=== PATIENT | male | born 1965 | race Caucasian/White ===

== ENCOUNTER → 2020-11-03 14:23 | Outpatient (CLI) | payer OTHER, SELFPAY ==
[2020-11-03 16:56] LABS: Alanine Aminotransferase 30 IU/L (<50); Albumin 4.2 g/dL (3.5-5.0); Albumin Globulin Ratio 1.4 (1.0-2.8); Alkaline Phosphatase 75 U/L (38-126); Aspartate Aminotransferase 29 IU/L (17-59); BUN Creatinine Ratio 26.2 (6-22); Bilirubin Total 0.4 mg/dL (0.2-1.3); Blood Urea Nitrogen 17 mg/dL (9-20); Calcium 9.5 mg/dL (8.4-10.2); Carbon Dioxide 29 mmol/L (22-32); Chloride 107 mmol/L (98-107); Cholesterol 257 mg/dL (140-199); Estimated Glomerular Filt Rate > 60.0 mL/min (>60); Glucose 98 mg/dL (70-100); HDL Cholesterol 35 mg/dL (40-60); HEMOLYSIS < 15 (0-50); LDL Cholesterol Calculated 194 mg/dL (<100); Sodium 142 mmol/L (137-145); Total Protein 7.2 g/dL (6.3-8.2); Triglycerides 140 mg/dL (35-150)
== END ==
PROVIDERS: PCP Internal Medicine; Referring Provider Internal Medicine; Visit Provider Internal Medicine
DX: B18.2 Chronic viral hepatitis C (principal); Z13.1 Encounter for screening for diabetes mellitus; Z13.220 Encounter for screening for lipoid disorders
CPT/HCPCS: 36415; 80053; 80061

== ENCOUNTER → 2021-01-15 12:20 | Outpatient (CLI) | payer OTHER, SELFPAY ==
[2021-01-15 13:44] LABS: COVID19 -Nasal RAPID Negative (Negative)
== END ==
PROVIDERS: PCP Internal Medicine; Visit Provider Surgery
DX: Z20.822 Contact with and (suspected) exposure to COVID-19 (principal)
CPT/HCPCS: 87635; C9803

== ENCOUNTER 2021-01-18 07:06 | Day surgery (SDC) | payer OTHER, SELFPAY ==
--- NOTE | 2021-01-18 | PATH_ITS ---
[facility] Accession Number: [id number] . 01 Material submitted: . colon - SIGMOID POLYP . 01 Clinical history: . SDC . 02 Diagnosis: Sigmoid Colon, Polyp, Biopsy: Hyperplastic polyp. MRV 01/20/2021 1357 Local . 02 Electronically signed: . Sierra Thompson MD, Pathologist NPI- [id number] . 01 Gross description: . SIGMOID POLYP: Received in formalin is 1 fragment(s) of burciaga, soft tissue measuring 0.3 x 0.2 x 0.1 cm submitted entirely in 1 cassette(s) /GENET 01/19/2021 0452 Local . 02 Pathologist provided ICD-10: K63.5 . 02 CPT . 848381 Performed at: 01 [facility] [address] [place] [address], [place], [place] [id number] MD Cm Oglesby MD Phone: [phone] Performed at: 02 [facility] [address] [place], [place] [id number] MD Sierra Thompson MD Phone: [phone]
[2021-01-18 07:30] VITALS: BP 143/81; PULSE 81; RESP 16; TEMP 36.5; O2SAT 100; BMI 21.9
[2021-01-18] MEDS: LACTATED RINGERS 1,000 ML 100 ML IV (07:38)
--- NOTE | 2021-01-18 08:36 | PM.HP.1 ---
History of Present Illness History of Present Illness Date Patient Seen: 01/18/21 Time Patient Seen: 08:36 Chief complaint: SDC Narrative: The patient presents for colorectal sreening. They have never had any previous examination for such. No personal or family history of colon cancer. On further history denies any recent gastrointestinal symptoms. No nausea, vomiting, abdominal pain, loss of appetite, unexplained weight loss, change in bowel habits, diarrhea, constipation, melena, hematochezia, or bright red blood per rectum. Patient History Medical History Chicken pox (~1979) Chronic hepatitis C (~2007) Foot pain (~2018) Hemorrhoid (~1999) Mixed hyperlipidemia Substance abuse (~1987) Testicular cancer (~1988) Surgical History Anesthesia S/P orchiectomy S/P vasectomy S/P ventral herniorrhaphy Family & Social History Family History Mother Family history of breast cancer Social History: household members significant other Tobacco & Substance use: Smoking Status Former smoker alcohol intake former Substance Use Type does not use Meds Home Medications and Allergies Allergies Allergy/AdvReac Type Severity Reaction Status Date / Time Lorazepam AdvReac Unknown MUSCLE Uncoded 01/18/21 07:28 CONTRACTIONS Exam Vital Signs (past 8 hours): - 01/18/21 07:30 Temperature 97.7 F Pulse Rate 81 Respiratory Rate 16 Blood Pressure 143/81 H Pulse Oximetry 100 Oxygen Delivery Method Room Air Narrative Exam Narrative: GENERAL-well developed adult male, no acute distress HEENT-no scleral icterus, hearing intact NECK-no JVD, trachea midline CVS- regular rate, no peripheral edema RESP-unlabored respiratory effort, no audible wheezing GI-soft, nontender nondistended MSK-no cyanosis or clubbing, extremities without deformity SKIN-warm, dry NEURO-alert and oriented, no focal deficits PYSCH-Appropriate mood and affect Assessment & Plan Assessment & Plan narrative: The patient requires colorectal screening and colonoscopy is recommended. Technical details were discussed. Risks, benefits, alternatives explained. Risks including but not limited to myocardial infarction, aspiration, bleeding, pain, missed lesion, incomplete examination, need for further radiographic studies, colonic perforation, and need for major abdominal surgery were discussed. All questions were answered to their satisfaction, and they are in agreement with this plan.
[2021-01-18] MEDS: MIDAZOLAM 5 MG/5 ML VIAL IV (08:48)
[2021-01-18] MEDS: fentaNYL 250 MCG/5 ML INJ IV (08:48)
[2021-01-18 09:05] VITALS: BP 101/54; PULSE 69; RESP 16; TEMP 36.9; O2SAT 99
--- NOTE | 2021-01-18 09:05 | PM.OP.ENDO ---
Operative Date/Time/Diagnoses Date of procedure: 01/18/21 Time of procedure: 09:05 Pre-op diagnosis: screening colonoscopy Post-op diagnosis: other (rectal polyp) Procedure & Clinicians Study performed: Colonoscopy Same procedure as scheduled: Yes Indications: No prior colonoscopy here for routine screening Surgeon: Erasto Guevara Procedure Notes Procedure in detail: Medications: Conscious sedation using 9mg IV midazolam and 200mcg IV of fentanyl The history and physical was performed/updated and the patient is ASA class is 2. The procedure was discussed in detail with the patient. Potential risks complications including infection, bleeding, missed diagnosis, perforation, need for surgery, and were explained. Their questions were answered and informed consent was obtained. Patient was brought to the procedure room and placed standard monitoring equipment. The patient's vital signs were monitored continuously throughout the entire procedure. Prior to starting time-out was performed. The patient was placed in the left lateral recumbent position. Procedural sedation was administered. Examination began with a thorough inspection of the perianal area there was no evidence of fissures, fistulae, external hemorrhoids or cutaneous malignancy. The colonoscopy scope was then placed into the anal canal and was advanced to the cecum, which was identified by the ileocecal valve, the appendiceal orifice and the confluence of the taenia. The scope was then slowly withdrawn examining colon thoroughly in all directions, irrigating it of any residual stool. FINDINGS 1. Sigmoid diverticulosis 2. Sigmoid polyp 5 mm removed with biopsy forceps The patient tolerated the procedure well. They will be discharged once criteria are met. The prep was of fair quality. The withdrawl time was 6 minutes. The sedation time was 22 minutes. Impression: colonic polyp Post-procedure Recommendations: Colonscopy in 5 years and High fiber diet Disposition: same day surgery
[2021-01-18 09:10] VITALS: BP 94/53; PULSE 75; RESP 16; O2SAT 98
--- NOTE | 2021-01-18 09:11 | SUR.PHASEI ---
Received to PACU after colonoscopy with sedation. Report from TERRELL Talley.
[2021-01-18 09:15] VITALS: BP 98/54; PULSE 70; RESP 14; O2SAT 100
[2021-01-18 09:20] VITALS: BP 104/73; PULSE 74; RESP 12; O2SAT 100
[2021-01-18 09:21] VITALS: BP 103/70; PULSE 76; RESP 16; TEMP 36.2; O2SAT 100
== END 2021-01-18 09:59 | disposition home or self-care (01) ==
PROVIDERS: PCP Internal Medicine; Referring Provider Surgery; Visit Provider Surgery
PROC: 0DJD8ZZ Inspection of Lower Intestinal Tract, Via Natural or Artificial Opening Endoscopic (ICD-10-PCS; CPT 45378; principal; 2021-01-18 07:45)
DX: Z12.11 Encounter for screening for malignant neoplasm of colon (principal); K62.1 Rectal polyp; K57.30 Diverticulosis of large intestine without perforation or abscess without bleeding; K63.5 Polyp of colon
CPT/HCPCS: 45380; 99152; J2250; J3010

== ENCOUNTER → 2021-06-04 14:53 | Outpatient (CLI) | payer OTHER, SELFPAY ==
[2021-06-04 17:39] LABS: Alanine Aminotransferase 19 IU/L (<50); Albumin 4.3 g/dL (3.5-5.0); Albumin Globulin Ratio 1.5 (1.0-2.8); Alkaline Phosphatase 63 U/L (38-126); Aspartate Aminotransferase 25 IU/L (17-59); BUN Creatinine Ratio 20.5 (6-22); Bilirubin Total 0.5 mg/dL (0.2-1.3); Blood Urea Nitrogen 15 mg/dL (9-20); Calcium 9.7 mg/dL (8.4-10.2); Carbon Dioxide 30 mmol/L (22-32); Chloride 108 mmol/L (98-107); Cholesterol 260 mg/dL (140-199); Estimated Glomerular Filt Rate > 60.0 mL/min (>60); Globulin 2.9 g/dL (1.7-4.1); Glucose 91 mg/dL (70-100); HDL Cholesterol 32 mg/dL (40-60); HEMOLYSIS < 15 (0-50); LDL Cholesterol Calculated 197 mg/dL (<100); Potassium 4.4 mmol/L (3.4-5.1); Sodium 141 mmol/L (137-145); Total Protein 7.2 g/dL (6.3-8.2); Triglycerides 157 mg/dL (35-150)
== END ==
PROVIDERS: PCP Internal Medicine; Referring Provider Internal Medicine; Visit Provider Internal Medicine
DX: E78.2 Mixed hyperlipidemia (principal)
CPT/HCPCS: 36415; 80053; 80061